=== PATIENT | male | born 1955 | race Caucasian/White ===

== ENCOUNTER 2017-03-01 17:50 | Inpatient (IN) | payer MEDICARE ==
[~2017-03-01] VITALS: Ht 188 cm; Wt 85.0 kg
[2017-03-01] MEDS ORDERED: IOHEXOL 350 MG/ML 10 ML VIAL (for RAD DIAG) IVCONTRAST ONE (17:51)
[2017-03-01 17:54] VITALS: BP 131/91; PULSE 84; RESP 14; TEMP 98; O2SAT 96
[2017-03-01] MEDS ORDERED: SODIUM CHLOR 0.9% 1000 ML INJ 1,000 ML IV ONE (18:19)
[2017-03-01] MEDS ORDERED: TAMS5CAP PO (18:22)
[2017-03-01] MEDS ORDERED: NEXI20CA PO (18:22)
[2017-03-01 18:26] VITALS: RESP 17; O2SAT 98
--- NOTE | 2017-03-01 18:28 | PD ---
HPI Chief Complaint: GI Complaint Time Seen by Provider: 18:07 Travel History International Travel<30 days: No Contact w/Intl Traveler<30days: No Traveled to known affect area: No History of Present Illness HPI 61-year-old male presents to the emergency department for evaluation of hematemesis, abdominal pain, headache, syncope 2. Patient states he came from [place] 2 weeks ago. He reports having abdominal pain since then, but worsened yesterday morning. Patient states he has vomited up blood twice. He states that there is approximately 2 shots glass full of blood in his vomit. He reports mild headache and mild blurry vision. He denies any chest pain or shortness of breath. Reports lower abdominal pain, nausea, vomiting, diarrhea. He denies any blood in his stool. Patient states that while at the beach today, he had 2 syncopal episodes while sitting down. Patient reports history of cardiac stent, cholecystectomy, back surgery 2, reflux. Patient states abdominal pain is in the lower abdomen. He is asking for pain medication. No radiation of the pain. Severity is moderate. No alleviating or exacerbating factors. PFSH Past Medical History Cardiovascular Problems: Yes High Cholesterol: Yes Hypertension: Yes Past Surgical History Cholecystectomy: Yes Coronary Stent: Yes Other Surgery: Yes (back surgery) Social History Alcohol Use: Yes Tobacco Use: Yes Substance Use: No Allergies-Medications (Allergen,Severity, Reaction): Coded Allergies: ketorolac (Verified Allergy, Severe, 03/01/17) butorphanol (Verified Adverse Reaction, Severe, 03/01/17) tramadol (Verified Adverse Reaction, Severe, 03/01/17) Reported Meds & Prescriptions Reported Meds & Active Scripts Active Reported Flomax (Tamsulosin HCl) 0.4 Mg Cap 0.4 Mg PO HS Nexium (Esomeprazole DR) 20 Mg Capdr 20 Mg PO DAILY Review of Systems Except as stated in HPI: all other systems reviewed are Neg Physical Exam Narrative GENERAL: Well-nourished, well-developed male patient, ambulatory. Afebrile SKIN: Focused skin assessment warm/dry. HEAD: Normocephalic. Atraumatic. ENT: Mucosa pink and moist. No erythema or exudates. No uvular edema. No uvular , palatal, or tonsillar deviation. Airway patent. Nasal turbinates appear normal without nasal blood, purulent drainage or septal hematoma. Bilateral tympanic membranes are clear without erythema or perforation. EYES: No scleral icterus. No injection or drainage. PERRLA. EOM intact. NECK: Supple, trachea midline. No JVD or lymphadenopathy. CARDIOVASCULAR: Regular rate and rhythm without murmurs, gallops, or rubs. Bilateral radial and pedal pulses are 2+. RESPIRATORY: Breath sounds equal bilaterally. No accessory muscle use. Lungs sounds are clear to auscultation. GASTROINTESTINAL: Abdomen soft and nondistended. Patient has tenderness to palpation of bilateral lower abdomen. MUSCULOSKELETAL: No cyanosis, or edema. Bilateral upper and lower extremity strength 5/5. All extremities are neurovascularly intact. BACK: Nontender without obvious deformity. No CVA tenderness. NEUROLOGICAL: Awake and alert. Cranial nerves II through XII intact. Motor and sensory grossly within normal limits. Five out of 5 muscle strength in all muscle groups. Normal speech. Finger to nose is normal bilaterally. Heel-to- baig is normal bilaterally. Data Data Last Documented VS Vital Signs Date Time Temp Pulse Resp B/P (MAP) Pulse Ox O2 Delivery O2 Flow Rate FiO2 03/01/17 21:10 82 20 136/89 (105) 100 Room Air 03/01/17 17:54 98.0 Orders Orders Electrocardiogram (03/01/17 18:19) Complete Blood Count With Diff (03/01/17 18:19) Comprehensive Metabolic Panel (03/01/17 18:19) Magnesium (Mg) (03/01/17 18:19) Ckmb (Isoenzyme) Profile (03/01/17 18:19) Troponin I (03/01/17 18:19) Act Partial Throm Time (Ptt) (03/01/17 18:19) Prothrombin Time / Inr (Pt) (03/01/17 18:19) Urinalysis - C+S If Indicated (03/01/17 18:19) Chest, Single Ap (03/01/17 18:19) Ct Brain W/O Iv Contrast(Rout) (03/01/17 18:19) Ecg Monitoring (03/01/17 18:19) Iv Access Insert/Monitor (03/01/17 18:19) Oximetry (03/01/17 18:19) Ondansetron Inj (Zofran Inj) (03/01/17 18:30) Sodium Chloride 0.9% Flush (Ns Flush) (03/01/17 18:30) Sodium Chlor 0.9% 1000 Ml Inj (Ns 1000 M (03/01/17 18:19) Lipase (03/01/17 18:19) Ct Abd/Pel W Iv Contrast(Rout) (03/01/17 ) Orthostatic Vital Signs (03/01/17 18:19) Morphine Inj (Morphine Inj) (03/01/17 18:30) Pantoprazole Inj (Protonix Inj) (03/01/17 19:00) CKMB (03/01/17 18:35) CKMB% (03/01/17 18:35) Morphine Inj (Morphine Inj) (03/01/17 20:15) Iohexol 350 Inj (Omnipaque 350 Inj) (03/01/17 17:51) Labs Laboratory Tests Test 03/01/17 18:35 03/01/17 21:05 White Blood Count 10.6 TH/MM3 Red Blood Count 5.09 MIL/MM3 Hemoglobin 16.3 GM/DL Hematocrit 47.2 % Mean Corpuscular Volume 92.9 FL Mean Corpuscular Hemoglobin 32.1 PG Mean Corpuscular Hemoglobin Concent 34.6 % Red Cell Distribution Width 13.5 % Platelet Count 315 TH/MM3 Mean Platelet Volume 7.7 FL Neutrophils (%) (Auto) 61.5 % Lymphocytes (%) (Auto) 22.9 % Monocytes (%) (Auto) 9.8 % Eosinophils (%) (Auto) 4.7 % Basophils (%) (Auto) 1.1 % Neutrophils # (Auto) 6.5 TH/MM3 Lymphocytes # (Auto) 2.4 TH/MM3 Monocytes # (Auto) 1.0 TH/MM3 Eosinophils # (Auto) 0.5 TH/MM3 Basophils # (Auto) 0.1 TH/MM3 CBC Comment DIFF FINAL Differential Comment Prothrombin Time 10.9 SEC Prothromb Time International Ratio 1.0 RATIO Activated Partial Thromboplast Time 26.1 SEC Blood Urea Nitrogen 8 MG/DL Creatinine 0.81 MG/DL Random Glucose 95 MG/DL Total Protein 7.6 GM/DL Albumin 4.0 GM/DL Calcium Level 9.0 MG/DL Magnesium Level 2.2 MG/DL Alkaline Phosphatase 117 U/L Aspartate Amino Transf (AST/SGOT) 22 U/L Alanine Aminotransferase (ALT/SGPT) 30 U/L Total Bilirubin 0.5 MG/DL Sodium Level 138 MEQ/L Potassium Level 3.8 MEQ/L Chloride Level 104 MEQ/L Carbon Dioxide Level 27.2 MEQ/L Anion Gap 7 MEQ/L Estimat Glomerular Filtration Rate 97 ML/MIN Total Creatine Kinase 200 U/L Creatine Kinase MB 3.6 NG/ML Troponin I 0.02 NG/ML Lipase 168 U/L Urine Color LIGHT-YELLOW Urine Turbidity CLEAR Urine pH 6.0 Urine Specific [place] 1.009 Urine Protein NEG mg/dL Urine Glucose (UA) NEG mg/dL Urine Ketones NEG mg/dL Urine Occult Blood NEG Urine Nitrite NEG Urine Bilirubin NEG Urine Urobilinogen LESS THAN 2.0 MG/DL Urine Leukocyte Esterase NEG Urine WBC LESS THAN 1 /hpf Urine Mucus FEW /lpf Microscopic Urinalysis Comment CULT NOT INDICATED MDM Medical Decision Making Medical Screen Exam Complete: Yes Emergency Medical Condition: Yes Medical Record Reviewed: Yes Interpretation(s) Last Impressions Head CT 03/01/171818 Signed Impressions: Service Date/Time: Wednesday, March 01, 2017 19:54 - CONCLUSION: Normal examination. Valentino Kahn MD Chest X-Ray 03/01/171818 Signed Impressions: Service Date/Time: Wednesday, March 01, 2017 18:31 - CONCLUSION: Normal examination. Valentino Kahn MD Abdomen/Pelvis CT 03/01/17 0000 Signed Impressions: Service Date/Time: Wednesday, March 01, 2017 19:58 - CONCLUSION: 1. Colonic diverticula without inflammatory change. 2. Suspected prostatic hypertrophy causing impress on the bladder floor. The bladder wall is diffusely thickened as may reflect lack of full distention and some degree of outlet obstruction could also contribute to this. 3. Degenerative and postoperative change in the lumbar spine. Valentino Kahn MD Differential Diagnosis Gastric ulcer versus diverticulitis versus gastroenteritis versus elected abnormality versus anemia versus intracranial abnormality versus ACS Narrative Course 61-year-old male presents to the emergency department for any hematemesis, abdominal pain, headache, blurry vision, syncope 2. EKG, CBC, CMP, Lipase, CK , Troponin, Magnesium, PTT, PT/INR, UA, Chest x-ray, CT of the brain, orthostatic VS, CT of the abdomen/pelvis with IV contrast is ordered and pending. Patient is requesting pain medication. Patient is given NS 1 L IV bolus, Zofran 4 mg IV, Morphine 4 mg IV. EKG shows SR, HR 75. CBC shows no acute abnormality. CMP is unremarkable. Magnesium is 2.2. Lipase is 168. CK is 200. Troponin is 0.02. Coags show no acute abnormality. UA is negative. Chest x-ray is normal. CT of the brain is normal. CT of the abdomen/pelvis with IV contrast shows colonic diverticula without inflammatory change; suspected prostatic hypertrophy causing impress on the bladder floor. The bladder wall is diffusely thickened as may reflect lack of full distention and some degree of outlet obstruction could also contribute to this; degenerative and postoperative change in the lumbar spine. Patient was given a second dose of morphine 4 mg IV for pain. He states his pain is still returning despite the pain medication. Patient also states that 3 months ago, he was told he needed an endoscopy, but declined at that time because he was scared. Patient will be admitted to the hospital for syncope, hematemesis. [facility] is paged for admission. Dr. Hogan accepted admission. Diagnosis Primary Impression: Syncope Qualified Codes: R55 - Syncope and collapse Additional Impression: Hematemesis Qualified Codes: K92.0 - Hematemesis Admitting Information Admitting Physician Requests: Chelsy Burns Mar 01, 2017 18:28
[2017-03-01] MEDS ORDERED: SODIUM CHLORIDE 0.9% FLUSH 10 ML FLUSH IVF PRN (18:30)
[2017-03-01] MEDS ORDERED: ONDANSETRON HCL 4 MG/2 ML VIAL IVP ONE (18:30)
[2017-03-01] MEDS ORDERED: MORPHINE SULFATE 4 MG/ML INJ IV PUSH ONE ×2 (18:30→20:15)
[2017-03-01 18:32] VITALS: BP_SYST 161; BP_SYST 165; BP_SYST 173; BP_DIAS 100; BP_DIAS 98; BP_DIAS 99; RESP 17
[2017-03-01 18:44] LABS: AUTOMATED NEUTROPHIL # 6.5 TH/MM3 (1.8-7.7); BASOPHIL # 0.1 TH/MM3 (0-0.2); BASOPHIL % 1.1 % (0.0-2.0); EOSINOPHIL # 0.5 TH/MM3 (0-0.4); EOSINOPHIL % 4.7 % (0.0-4.0); HEMATOCRIT 47.2 % (39.0-51.0); HEMO FLAGS DIFF FINAL; LYMPH % 22.9 % (9.0-44.0); LYMPHOCYTE # 2.4 TH/MM3 (1.0-4.8); MEAN CELL VOLUME 92.9 FL (80.0-100.0); MEAN CORPUSCULAR HEMOGLOBIN 32.1 PG (27.0-34.0); MEAN CORPUSCULAR HGB CONC 34.6 % (32.0-36.0); MONO % 9.8 % (0.0-8.0); NEUT % 61.5 % (16.0-70.0); PLATELET COUNT 315 TH/MM3 (150-450); RED BLOOD COUNT 5.09 MIL/MM3 (4.50-5.90); RED CELL DISTRIBUTION WIDTH 13.5 % (11.6-17.2); WHITE BLOOD COUNT 10.6 TH/MM3 (4.0-11.0)
[2017-03-01 18:56] LABS: APTT (PATIENT) 26.1 SEC (24.3-30.1); PROTHROMBIN TIME - PATIENT 10.9 SEC (9.8-11.6)
[2017-03-01] MEDS ORDERED: PANTOPRAZOLE SODIUM 40 MG VIAL IV PUSH ONE (19:00)
[2017-03-01 19:02] LABS: ANION GAP 7 MEQ/L (5-15); AST (GOT) 22 U/L (15-37); BICARBONATE 27.2 MEQ/L (21.0-32.0); BLOOD UREA NITROGEN 8 MG/DL (7-18); CHLORIDE 104 MEQ/L (98-107); GLOMERULAR FILTRATION RATE 97 ML/MIN (>89); MAGNESIUM 2.2 MG/DL (1.5-2.5); POTASSIUM 3.8 MEQ/L (3.5-5.1); SODIUM (NA) 138 MEQ/L (136-145)
[2017-03-01 19:03] LABS: ALT (GPT) 30 U/L (12-78)
[2017-03-01 19:07] LABS: ALKALINE PHOSPHATASE 117 U/L (45-117); CREATINE KINASE 200 U/L (39-308); TOTAL BILIRUBIN ADULT 0.5 MG/DL (0.2-1.0)
[2017-03-01 19:19] LABS: CKMB 3.6 NG/ML (0.5-3.6)
--- NOTE | 2017-03-01 19:26 | RADRPT ---
EXAM DATE/TIME: 03/01/2017 18:31 [facility] COMPARISON: No previous studies available for comparison. INDICATIONS : Syncopal episode. MEDICAL HISTORY : Chronic obstructive pulmonary disease. SURGICAL HISTORY : None. ENCOUNTER: Initial ACUITY: 1 day PAIN SCORE: 0/10 LOCATION: Bilateral chest FINDINGS: A single view of the chest demonstrates the lungs to be symmetrically aerated without evidence of mas s, infiltrate or effusion. The cardiomediastinal contours are unremarkable. Osseous structures are intact. CONCLUSION: Normal examination. Valentino Kahn MD on March 01, 2017 at 19:24 Board Certified Radiologist. This report was verified electronically.
[2017-03-01 21:10] VITALS: BP 136/89; PULSE 82; RESP 20; O2SAT 100
--- NOTE | 2017-03-01 21:10 | RADRPT ---
EXAM DATE/TIME: 03/01/2017 19:54 [facility] COMPARISON: No previous studies available for comparison. INDICATIONS : Syncope nausea vomiting for two days RADIATION DOSE: 56.35 CTDIvol (mGy) MEDICAL HISTORY : Cardiovascular disease. Hypertension. SURGICAL HISTORY : Cholecystectomy. ENCOUNTER: Initial ACUITY: 2 days PAIN SCALE: 8/10 LOCATION: cranial TECHNIQUE: Multiple contiguous axial images were obtained of the head. Using automated exposure control and adj ustment of the mA and/or kV according to patient size, radiation dose was kept as low as reasonably a chievable to obtain optimal diagnostic quality images. DICOM format image data is available electro nically for review and comparison. FINDINGS: CEREBRUM: The ventricles are normal for age. No evidence of midline shift, mass lesion, hemorrhage or acute in farction. No extra-axial fluid collections are seen. POSTERIOR FOSSA: The cerebellum and brainstem are intact. The 4th ventricle is midline. The cerebellopontine angle i s unremarkable. EXTRACRANIAL: The visualized portion of the orbits is intact. SKULL: The calvaria is intact. No evidence of skull fracture. CONCLUSION: Normal examination. Valentino Kahn MD on March 01, 2017 at 21:07 Board Certified Radiologist. This report was verified electronically.
--- NOTE | 2017-03-01 21:15 | RADRPT ---
EXAM DATE/TIME: 03/01/2017 19:58 [facility] COMPARISON: No previous studies available for comparison. INDICATIONS : Abdomen pain vomiting blood for two days. IV CONTRAST: 96 cc Omnipaque 350 (iohexol) IV ORAL CONTRAST: No oral contrast ingested. RADIATION DOSE: 6.84 CTDIvol (mGy) MEDICAL HISTORY : Cardiovascular disease. Hypertension. SURGICAL HISTORY : Cholecystectomy. ENCOUNTER: Initial ACUITY: 1 day PAIN SCALE: 8/10 LOCATION: Abdomen TECHNIQUE: Volumetric scanning of the abdomen and pelvis was performed. Using automated exposure control and ad justment of the mA and/or kV according to patient size, radiation dose was kept as low as reasonably achievable to obtain optimal diagnostic quality images. DICOM format image data is available electro nically for review and comparison. FINDINGS: LOWER LUNGS: The visualized lower lungs are clear. LIVER: Homogeneous density without lesion. There is no dilation of the biliary tree. Clips are seen in the right upper quadrant from prior cholecystectomy. SPLEEN: Normal size without lesion. PANCREAS: Within normal limits. KIDNEYS: Normal in size and shape. There is no mass, stone or hydronephrosis. ADRENAL GLANDS: Within normal limits. VASCULAR: There is no aortic aneurysm. There are scattered atherosclerotic calcifications seen throughout the a rterial system. BOWEL/MESENTERY: There are colonic diverticula in the sigmoid region. The appendix is normal. ABDOMINAL WALL: Within normal limits. RETROPERITONEUM: There is no lymphadenopathy. BLADDER: The bladder wall is mildly thickened. The bladder is only mildly distended. There is a focal masslike area seen at the bladder floor likely related to an impression from prostatic hypertrophy. REPRODUCTIVE: There appears to be hypertrophy of the superior aspect of the prostate projecting into the bladder fl oor. INGUINAL: There is no lymphadenopathy or hernia. MUSCULOSKELETAL: There is degenerative change in the lumbar spine. There is evidence of prior surgical hardware in the lumbar spine is been removed. Tracks for transpedicular screws are seen. CONCLUSION: 1. Colonic diverticula without inflammatory change. 2. Suspected prostatic hypertrophy causing impress on the bladder floor. The bladder wall is diffusel y thickened as may reflect lack of full distention and some degree of outlet obstruction could also c ontribute to this. 3. Degenerative and postoperative change in the lumbar spine. Valentino Kahn MD on March 01, 2017 at 21:08 Board Certified Radiologist. This report was verified electronically.
[2017-03-01 21:25] LABS: BLOOD, URINE NEG (NEG); COMMENT (UR) CULT NOT INDICATED; CULTURE IF INDICATED CULT NOT INDICATED; GLUCOSE,URINE NEG (NEG); KETONE, URINE NEG (NEG); MUCUS URINE FEW /lpf (OCC); NITRITE,URINE NEG (NEG); URINE COLOR LIGHT-YELLOW (YELLW/STRAW)
[2017-03-01] MEDS ORDERED: SODIUM CHLOR 0.9% 1000 ML INJ 1,000 ML IV SCH (21:49)
[2017-03-01] MEDS ORDERED: SODIUM CHLORIDE 0.9% FLUSH 10 ML FLUSH IV FLUSH PRN (22:00)
[2017-03-01 23:00] VITALS: BP 142/72
[2017-03-01 23:50] VITALS: BP 143/71; PULSE 85; RESP 19; TEMP 97.4; O2SAT 94
[2017-03-02] VITALS (11 sets, daily range): BP systolic 120–142; BP diastolic 76–92; PULSE 70–88; RESP 16–20; TEMP 96.4–97.9; O2SAT 95–96
[2017-03-02] MEDS ORDERED: MORPHINE SULFATE 2 MG/ML INJ IV ONE (02:00)
--- NOTE | 2017-03-02 02:01 | HHI.HP ---
[facility] No Primary Care Physician Admission Diagnosis syncope, hematemesis Diagnoses: Travel History International Travel<30 Days: No Contact w/Intl Traveler <30 Da: No Traveled to Known Affected Are: No History of Present Illness 61-year-old male with a past medical history significant for coronary artery disease status post stent placement approximately 10 years ago, hypertension, BPH and GERD presents with multiple syncopal episodes and hematemesis. The patient reports he was on the beach with his son when he passed out 2. He states he became lightheaded and then lost consciousness briefly. He reports this has happened before although cannot give me specifics of any other events. The patient also endorses hematemesis. He states he had 2 episodes with a half a cup of blood in his vomit today. He states this has happened to him before when he was living in [place] and he was scheduled for an EGD but did not go through with it because "he chickened out." The patient is not anemic. Endorses abdominal pain worse in the lower quadrants. Denies diarrhea. Denies fever/chills. The patient moved here from [place] 15 days ago, is currently living in various motels. Review of Systems Denies fever or chills Denies blurry vision, otorrhea, rhinorrhea Denies sore throat and cough No chest pain, palpitations, shortness of breath No abdominal pain Denies constipation/diarrhea/nausea/vomiting Denies muscle pain/weakness No rashes Past Family Social History Past Medical History Coronary artery disease with stenting 10 years ago. Of note the patient reports he is supposed to take aspirin and Plavix but does not. Hypertension BPH GERD Past Surgical History Stent approximately 10 years ago Back surgery 2 complicated by MRSA infection Index finger reattachment Cholecystectomy Reported Medications Reported Meds & Active Scripts Active Reported Flomax (Tamsulosin HCl) 0.4 Mg Cap 0.4 Mg PO HS Nexium (Esomeprazole DR) 20 Mg Capdr 20 Mg PO DAILY Allergies: Coded Allergies: ketorolac (Verified Allergy, Severe, 03/01/17) butorphanol (Verified Adverse Reaction, Severe, 03/01/17) tramadol (Verified Adverse Reaction, Severe, 03/01/17) Family History Father with prostate cancer and diabetes. Mother with diabetes. Social History Smokes half a pack per day 30 years. Occasional alcohol use. Denies marijuana or illicit drugs. Physical Exam Vital Signs Vital Signs Date Time Temp Pulse Resp B/P (MAP) Pulse Ox O2 Delivery O2 Flow Rate FiO2 03/01/17 23:50 97.4 85 19 143/71 (95) 94 03/01/17 23:00 86 20 142/72 (95) 98 03/01/17 21:10 82 20 136/89 (105) 100 Room Air 03/01/17 18:37 17 03/01/17 18:32 89 17 161/99 (119) 94 17 173/100 (124) 99 17 165/98 (120) 03/01/17 18:29 17 03/01/17 18:26 17 98 Room Air 03/01/17 17:54 98.0 84 14 131/91 (104) 96 Room Air Physical Exam GENERAL: Disheveled, male sitting up SKIN: No rashes, ecchymoses or lesions. Cool and dry. HEAD: Atraumatic. Normocephalic. No temporal or scalp tenderness. EYES: Pupils equal round and reactive. Extraocular motions intact. No scleral icterus. No injection or drainage. ENT: Nose without bleeding, purulent drainage or septal hematoma. Throat without erythema, tonsillar hypertrophy or exudate. Uvula midline. Airway patent. NECK: Trachea midline. No JVD or lymphadenopathy. Supple, nontender, no meningeal signs. CARDIOVASCULAR: Regular rate and rhythm without murmurs, gallops, or rubs. RESPIRATORY: Clear to auscultation. Breath sounds equal bilaterally. No wheezes , rales, or rhonchi. GASTROINTESTINAL: Abdomen soft, nondistended. Tender to palpation in the lower quadrants, right greater than left. No hepato-splenomegaly, or palpable masses. No guarding. MUSCULOSKELETAL: Extremities without clubbing, cyanosis, or edema. No joint tenderness, effusion, or edema noted. No calf tenderness. Negative Homans sign bilaterally. NEUROLOGICAL: Awake and alert. Cranial nerves II through XII intact. Motor and sensory grossly within normal limits. Normal speech. Laboratory Laboratory Tests Test 03/01/17 18:35 03/01/17 21:05 White Blood Count 10.6 Red Blood Count 5.09 Hemoglobin 16.3 Hematocrit 47.2 Mean Corpuscular Volume 92.9 Mean Corpuscular Hemoglobin 32.1 Mean Corpuscular Hemoglobin Concent 34.6 Red Cell Distribution Width 13.5 Platelet Count 315 Mean Platelet Volume 7.7 Neutrophils (%) (Auto) 61.5 Lymphocytes (%) (Auto) 22.9 Monocytes (%) (Auto) 9.8 Eosinophils (%) (Auto) 4.7 Basophils (%) (Auto) 1.1 Neutrophils # (Auto) 6.5 Lymphocytes # (Auto) 2.4 Monocytes # (Auto) 1.0 Eosinophils # (Auto) 0.5 Basophils # (Auto) 0.1 CBC Comment DIFF FINAL Differential Comment Prothrombin Time 10.9 Prothromb Time International Ratio 1.0 Activated Partial Thromboplast Time 26.1 Blood Urea Nitrogen 8 Creatinine 0.81 Random Glucose 95 Total Protein 7.6 Albumin 4.0 Calcium Level 9.0 Magnesium Level 2.2 Alkaline Phosphatase 117 Aspartate Amino Transf (AST/SGOT) 22 Alanine Aminotransferase (ALT/SGPT) 30 Total Bilirubin 0.5 Sodium Level 138 Potassium Level 3.8 Chloride Level 104 Carbon Dioxide Level 27.2 Anion Gap 7 Estimat Glomerular Filtration Rate 97 Total Creatine Kinase 200 Creatine Kinase MB 3.6 Troponin I 0.02 Lipase 168 Ethyl Alcohol Level 4 Urine Color LIGHT-YELLOW Urine Turbidity CLEAR Urine pH 6.0 Urine Specific [place] 1.009 Urine Protein NEG Urine Glucose (UA) NEG Urine Ketones NEG Urine Occult Blood NEG Urine Nitrite NEG Urine Bilirubin NEG Urine Urobilinogen LESS THAN 2.0 Urine Leukocyte Esterase NEG Urine WBC LESS THAN 1 Urine Mucus FEW Microscopic Urinalysis Comment CULT NOT INDICATED Result Diagram: 03/01/17183403/01/171834 Caprini VTE Risk Assessment Caprini VTE Risk Assessment: Mod/High Risk (score >= 2) VTE Pharm Contraindication: Active bleeding Caprini Risk Assessment Model Point Value = 1 Point Value = 2 Point Value = 3 Point Value = 5 Age 41-60 Minor surgery BMI > 25 kg/m2 Swollen legs Varicose veins or History of unexplained or recurrent spontaneous Oral contraceptives or hormone replacement Sepsis (< 1 month) Serious lung disease, including pneumonia (< 1 month) Abnormal pulmonary function Acute myocardial infarction Congestive heart failure (< 1 month) History of inflammatory bowel disease Medical patient at bed rest Age 61-74 Arthroscopic surgery Major open surgery (> 45 min) Laparoscopic surgery (> 45 min) Malignancy Confined to bed (> 72 hours) Immobilizing plaster cast Central venous access Age >= 75 History of VTE Family history of VTE Factor V Leiden Prothrombin [id number] Lupus anticoagulant Anticardiolipin antibodies Elevated serum homocysteine Heparin-induced thrombocytopenia Other congenital or acquired thrombophilia Stroke (< 1 month) Elective arthroplasty Hip, pelvis, or leg fracture Acute spinal cord injury (< 1 month) Prophylaxis Regimen Total Risk Factor Score Risk Level Prophylaxis Regimen 0-1 Low Early ambulation 2 Moderate Order ONE of the following: *Sequential Compression Device (SCD) *Heparin 5000 units SQ BID 3-4 Higher Order ONE of the following medications: *Heparin 5000 units SQ TID *Enoxaparin/Lovenox 40 mg SQ daily (WT < 150 kg, CrCl > 30 mL/min) *Enoxaparin/Lovenox 30 mg SQ daily (WT < 150 kg, CrCl > 10-29 mL/min) *Enoxaparin/Lovenox 30 mg SQ BID (WT < 150 kg, CrCl > 30 mL/min) AND/OR *Sequential Compression Device (SCD) 5 or more Highest Order ONE of the following medications: *Heparin 5000 units SQ TID (Preferred with Epidurals) *Enoxaparin/Lovenox 40 mg SQ daily (WT < 150 kg, CrCl > 30 mL/min) *Enoxaparin/Lovenox 30 mg SQ daily (WT < 150 kg, CrCl > 10-29 mL/min) *Enoxaparin/Lovenox 30 mg SQ BID (WT < 150 kg, CrCl > 30 mL/min) AND *Sequential Compression Device (SCD) Assessment and Plan Assessment and Plan 61-year-old male with past medical history significant for coronary artery disease, hypertension, BPH and GERD presents with multiple episodes of hematemesis and syncope. 1. Hematemesis Protonix IV Nothing by mouth Gastroenterology consulted, appreciate recommendations Monitor H&H 2. Reported syncopal events EKG significant only for LVH Syncopal workup pending including ECHO and carotid ultrasound Alcohol level 4, toxicology pending 3. Hypertension Patient not currently taking any antihypertensives Monitor BP and treat when necessary 4. Coronary artery disease Patient status post stenting, states he is supposed to take aspirin and Plavix but does not Patient needs to establish with a director behavioral health as an outpatient 5. GERD IV Protonix 6. BPH Continue Flomax FEN NPO NS at 100 cc/hr Electrolytes: monitor and replete prn Holding pharmacologic anticoagulation for hematemesis Elen Hogan MD Mar 02, 2017 02:01
[2017-03-02 07:01] LABS: AUTOMATED NEUTROPHIL # 4.7 TH/MM3 (1.8-7.7); BASOPHIL # 0.1 TH/MM3 (0-0.2); BASOPHIL % 1.2 % (0.0-2.0); EOSINOPHIL # 0.5 TH/MM3 (0-0.4); EOSINOPHIL % 6.7 % (0.0-4.0); HEMATOCRIT 44.3 % (39.0-51.0); HEMO FLAGS DIFF FINAL; LYMPH % 23.5 % (9.0-44.0); LYMPHOCYTE # 1.9 TH/MM3 (1.0-4.8); MEAN CELL VOLUME 92.1 FL (80.0-100.0); MEAN CORPUSCULAR HEMOGLOBIN 32.5 PG (27.0-34.0); MEAN CORPUSCULAR HGB CONC 35.2 % (32.0-36.0); MONO % 9.7 % (0.0-8.0); NEUT % 58.9 % (16.0-70.0); PLATELET COUNT 280 TH/MM3 (150-450); RED BLOOD COUNT 4.81 MIL/MM3 (4.50-5.90); RED CELL DISTRIBUTION WIDTH 13.4 % (11.6-17.2); WHITE BLOOD COUNT 7.9 TH/MM3 (4.0-11.0)
[2017-03-02 07:32] LABS: BICARBONATE 27.7 MEQ/L (21.0-32.0)
--- NOTE | 2017-03-02 07:35 | PD.CONS ---
HPI History of Present Illness This is a 61 year old male who was brought to the emergency room for evaluation after a syncopal episode and hematemesis. [place] the [place] and fainted x 2. He reports that he wasn't dizzy or lightheaded, but states it just came out of nowhere. Prior to his syncopal episode, he vomited a small amount of red blood. He has been having abdominal pain for the past 6- 12 months. He describes this as a sharp/burning pain in his lower abdomen with radiation to his back. He has had associated nausea and vomiting with this, sometimes with red blood. He has GERD, but states that it is controlled with Nexium. He had loose stool yesterday, that was darker than usual. He denies any decreased appetite or weight loss. He believes he has had stomach ulcers in the past, although he is unsure. He was seen in [place] for hematemesis and was scheduled for an EGD about 8 months ago, but "chickened out" and never had it done. He reports that he did have an EGD and Colonoscopy many years ago. He does not take any Advil or Motrin. He does have a history of coronary artery disease and has had a stent placed. He was initially placed on Plavix, but states that he was taken off of this shortly after he had his stent placed. He drinks ETOH 6-8 beers per week. (Anabel Saenz) PFSH Past Medical History Coronary artery disease Hematemesis Hypertension BPH GERD Chronic back pain Past Surgical History Cardiac catheterization with stent placement about 10 years ago Back surgery with revision for MRSA infection Index finger reattachment Cholecystectomy EGD/Colonoscopy (Anabel Saenz) Coded Allergies: ketorolac (Verified Allergy, Severe, 03/01/17) butorphanol (Verified Adverse Reaction, Severe, 03/01/17) tramadol (Verified Adverse Reaction, Severe, 03/01/17) Medications Allergies Coded Allergies Type Severity Reaction Last Updated Verified ketorolac Allergy Severe 03/01/17 Yes butorphanol Adverse Reaction Severe 03/01/17 Yes tramadol Adverse Reaction Severe 03/01/17 Yes Active Scripts Medications Dose Route/Sig Max Daily Dose Days Date Category Flomax (Tamsulosin HCl) 0.4 Mg Cap 0.4 Mg PO HS 03/01/17 Reported Nexium (Esomeprazole DR) 20 Mg Capdr 20 Mg PO DAILY 03/01/17 Reported Family History Father with prostate cancer and diabetes. Mother with diabetes. Social History Smokes half a pack per day 30 years. Drinks 6-8 beers per week. Denies marijuana or illicit drugs. (Anabel Saenz) Review of Systems Constitutional: COMPLAINS OF: Chills, DENIES: Fatigue, Fever, Weight loss, Change in appetite Respiratory: COMPLAINS OF: Cough Cardiovascular: COMPLAINS OF: Syncope, DENIES: Chest pain Gastrointestinal: COMPLAINS OF: Abdominal pain, Black stools, Diarrhea, Nausea , Vomiting, Heartburn, Hematemesis, DENIES: Bloody stools, Constipation Musculoskeletal: COMPLAINS OF: Back pain Hematologic/lymphatic: DENIES: Bruising Neurologic: DENIES: Headache Psychiatric: DENIES: Confusion (Anabel Saenz) GI Exam Vitals I&O Vital Signs Date Time Temp Pulse Resp B/P (MAP) Pulse Ox O2 Delivery O2 Flow Rate FiO2 03/02/17 06:38 86 137/89 (105) 03/02/17 06:36 88 139/92 (108) 03/02/17 06:34 75 135/81 (99) 03/02/17 04:10 70 03/02/17 04:04 96.4 73 16 120/76 (91) 95 03/02/17 01:47 79 03/02/17 01:47 79 03/01/17 23:50 97.4 85 19 143/71 (95) 94 03/01/17 23:00 86 20 142/72 (95) 98 03/01/17 21:10 82 20 136/89 (105) 100 Room Air 03/01/17 18:37 17 03/01/17 18:32 89 17 161/99 (119) 94 17 173/100 (124) 99 17 165/98 (120) 03/01/17 18:29 17 03/01/17 18:26 17 98 Room Air 03/01/17 17:54 98.0 84 14 131/91 (104) 96 Room Air I/O 03/01/17 03/01/17 03/01/17 03/02/17 03/02/17 03/02/17 07:00 15:00 23:00 07:00 15:00 23:00 Intake Total 1000 ml Balance 1000 ml Intake IV Total 1000 ml Imaging Last Impressions Head CT 03/01/179 Signed Impressions: Service Date/Time: Wednesday, March 01, 2017 19:54 - CONCLUSION: Normal examination. Valentino Kahn MD Chest X-Ray 03/01/171818 Signed Impressions: Service Date/Time: Wednesday, March 01, 2017 18:31 - CONCLUSION: Normal examination. Valentino Kahn MD Abdomen/Pelvis CT 03/01/17 0000 Signed Impressions: Service Date/Time: Wednesday, March 01, 2017 19:58 - CONCLUSION: 1. Colonic diverticula without inflammatory change. 2. Suspected prostatic hypertrophy causing impress on the bladder floor. The bladder wall is diffusely thickened as may reflect lack of full distention and some degree of outlet obstruction could also contribute to this. 3. Degenerative and postoperative change in the lumbar spine. Valentino Kahn MD Laboratory Test 03/01/17 18:35 03/01/17 21:05 03/02/17 06:25 White Blood Count 10.6 TH/MM3 7.9 TH/MM3 Red Blood Count 5.09 MIL/MM3 4.81 MIL/MM3 Hemoglobin 16.3 GM/DL 15.6 GM/DL Hematocrit 47.2 % 44.3 % Mean Corpuscular Volume 92.9 FL 92.1 FL Mean Corpuscular Hemoglobin 32.1 PG 32.5 PG Mean Corpuscular Hemoglobin Concent 34.6 % 35.2 % Red Cell Distribution Width 13.5 % 13.4 % Platelet Count 315 TH/MM3 280 TH/MM3 Mean Platelet Volume 7.7 FL 7.7 FL Neutrophils (%) (Auto) 61.5 % 58.9 % Lymphocytes (%) (Auto) 22.9 % 23.5 % Monocytes (%) (Auto) 9.8 % 9.7 % Eosinophils (%) (Auto) 4.7 % 6.7 % Basophils (%) (Auto) 1.1 % 1.2 % Neutrophils # (Auto) 6.5 TH/MM3 4.7 TH/MM3 Lymphocytes # (Auto) 2.4 TH/MM3 1.9 TH/MM3 Monocytes # (Auto) 1.0 TH/MM3 0.8 TH/MM3 Eosinophils # (Auto) 0.5 TH/MM3 0.5 TH/MM3 Basophils # (Auto) 0.1 TH/MM3 0.1 TH/MM3 CBC Comment DIFF FINAL DIFF FINAL Differential Comment Prothrombin Time 10.9 SEC Prothromb Time International Ratio 1.0 RATIO Activated Partial Thromboplast Time 26.1 SEC Blood Urea Nitrogen 8 MG/DL Creatinine 0.81 MG/DL Random Glucose 95 MG/DL Total Protein 7.6 GM/DL Albumin 4.0 GM/DL Calcium Level 9.0 MG/DL Magnesium Level 2.2 MG/DL Alkaline Phosphatase 117 U/L Aspartate Amino Transf (AST/SGOT) 22 U/L Alanine Aminotransferase (ALT/SGPT) 30 U/L Total Bilirubin 0.5 MG/DL Sodium Level 138 MEQ/L Potassium Level 3.8 MEQ/L Chloride Level 104 MEQ/L Carbon Dioxide Level 27.2 MEQ/L Anion Gap 7 MEQ/L Estimat Glomerular Filtration Rate 97 ML/MIN Total Creatine Kinase 200 U/L Creatine Kinase MB 3.6 NG/ML Troponin I 0.02 NG/ML Lipase 168 U/L Ethyl Alcohol Level 4 MG/DL Urine Color LIGHT-YELLOW Urine Turbidity CLEAR Urine pH 6.0 Urine Specific [place] 1.009 Urine Protein NEG mg/dL Urine Glucose (UA) NEG mg/dL Urine Ketones NEG mg/dL Urine Occult Blood NEG Urine Nitrite NEG Urine Bilirubin NEG Urine Urobilinogen LESS THAN 2.0 MG/DL Urine Leukocyte Esterase NEG Urine WBC LESS THAN 1 /hpf Urine Mucus FEW /lpf Microscopic Urinalysis Comment CULT NOT INDICATED Urine Opiates Screen POS Urine Barbiturates Screen NEG Urine Amphetamines Screen NEG Urine Benzodiazepines Screen NEG Urine Cocaine Screen NEG Urine Cannabinoids Screen POS Physical Examination HEENT: Normocephalic; atraumatic; no jaundice. Throat is clear. NECK: Neck is supple, no JVD, no lymphadenopathy. CHEST: CTA CARDIAC: RRR ABDOMEN: Soft, nondistended, nontender; no hepatosplenomegaly; bowel sounds are present in all four quadrants. EXTREMITIES: No clubbing, cyanosis, or edema. SKIN: Normal; no rash; no jaundice. LAUNDRY TUB MAKER: No focal deficits; alert and oriented times three. (Anabel Saenz) Assessment and Plan Plan ASSESSMENT: - Hematemesis. Vomited small amount red blood x 2 yesterday. C/O intermittent lower abdominal pain past 6-12 months with rare episodes of hematemesis. He was scheduled for EGD 8 months ago, but did not follow through with it in [place]. (+) Dark stool. (+) ETOH- 6-8 beers per week. No on NSAIDs/Blood thinners. HH stable. Plan for egd today. PPI. NPO. - Abdominal pain. 6-12 month hx of lower abdominal sharp/burning pain. CT Scan abdomen and pelvis (03/01/17)---> Colonic diverticula without inflammatory change. Suspected prostatic hypertrophy causing impress on the bladder floor. The bladder wall is diffusely thickened as may reflex lack of full distention and some degree of outlet obstruction could also contribute to this. Degenerative and postoperative change in the lumbar spine. Labs unremarkable. PPI. EGD today. - Syncopal episode. Troponin I 0.02. - Abn. imaging of bladder per attending. - BPH, CAD, HTN, Chronic back pain. PLAN: - Plan for egd today - Obtain consents - NPO - Protonix 40mg IV BID - CBC, BMP in am - Supportive care - Futher recommendations to follow based on results of above - Pt seen and examined by Dr. Cramer and myself and this note is written on his behalf (Anabel Saenz) Physician Comments Patient seen and examined Agree with above Continue with current supportive care Monitor labs Plan for an EGD today (Dereje Cramer MD) Anabel Saenz Mar 02, 2017 07:35 Dereje Cramer MD Mar 02, 2017 13:09
[2017-03-02] MEDS: NS + KCL 20 MEQ INJ 1,000 ML IV SCH (08:43)
[2017-03-02] MEDS: PANTOPRAZOLE SODIUM 40 MG VIAL IV PUSH SCH ×2 (08:43→20:49)
[2017-03-02] MEDS: SODIUM CHLORIDE 0.9% FLUSH 10 ML FLUSH IV FLUSH SCH ×2 (08:43→20:48)
[2017-03-02] MEDS ORDERED: NON-FORMULARY DRUG (Esomeprazole DR (Nexium) 20 MG) PO SCH (09:00)
--- NOTE | 2017-03-02 09:53 | RADRPT ---
EXAM DATE/TIME: 03/02/2017 08:13 [facility] COMPARISON: No previous studies available for comparison. INDICATIONS : Syncope. MEDICAL HISTORY : Hypercholesterolemia. Hypertension. Syncope. Abdominal pain. Hematemesis. Substance use. Tobacco us e. SURGICAL HISTORY : Coronary artery stent. Cholecystectomy. Back surgery. ENCOUNTER: Initial ACUITY: 1 day PAIN SCORE: 0/10 LOCATION: Bilateral neck PEAK SYSTOLIC VELOCITIES (cm/sec): ICA/CCA RATIO: Right: 0.9 Left: 1.1 ICA: Right: 77 Left: 93 CCA: Right: 85 Left: 88 ECA: Right: 61 Left: 53 VERTEBRAL: Right: 48 antegrade Left: 40 antegrade Elevated flow velocities and ICA/CCA ratios have been found to correlate with increased degrees of vessel stenosis, calculated as percentage of diameter relative to a normal segment of distal ICA/CCA FINDINGS: RIGHT CAROTID: No significant stenosis is visualized. There is mild atherosclerotic plaquing. The waveforms are wit hin normal limits. LEFT CAROTID: No significant stenosis is visualized. There is mild atherosclerotic plaquing. The waveforms are wit hin normal limits. VERTEBRAL ARTERIES: Antegrade flow is seen in both vertebral arteries. MISCELLANEOUS: None. CONCLUSION: 1. Mild atherosclerotic plaquing. No hemodynamically significant carotid stenosis identified. Geoff Yu MD on March 02, 2017 at 9:49 Board Certified Radiologist. This report was verified electronically.
[2017-03-02] MEDS ORDERED: MORPHINE SULFATE 4 MG/ML INJ IV PUSH PRN (10:30)
[2017-03-02] MEDS: TAMSULOSIN HCL 0.4 MG CAP PO SCH (10:30)
[2017-03-02] MEDS ORDERED: ACETAMINOPHEN 325 MG TAB PO PRN (10:30)
--- NOTE | 2017-03-02 10:42 | HHI.PR ---
Subjective Remarks Follow up for syncope, hematemesis. The patient's main concern today is his ongoing abdominal pain. He locates the pain diffusely across the lower abdomen and suprapubic area, described as intermittent burning 8/10 pain. He states he' s had these pains off/on for 6-8 months. He states he doesn't have any pain medication. He is requesting pain medication to be ordered. His last BM was this morning, described as formed, nonbloody. He has not vomited since prior to arrival. He states he is aware of his enlarged prostate and that is why he takes flomax. He occasionally has urinary hesitancy but denies any dysuria. Denies any fevers/chills. He recently moved to the area from [place] and states he will have a place to live by the first of the month. Objective Vitals Vital Signs Date Time Temp Pulse Resp B/P (MAP) Pulse Ox O2 Delivery O2 Flow Rate FiO2 03/02/17 07:57 97.7 78 20 142/87 (105) 95 03/02/17 06:38 86 137/89 (105) 03/02/17 06:36 88 139/92 (108) 03/02/17 06:34 75 135/81 (99) 03/02/17 04:10 70 03/02/17 04:04 96.4 73 16 120/76 (91) 95 03/02/17 01:47 79 03/02/17 01:47 79 03/01/17 23:50 97.4 85 19 143/71 (95) 94 03/01/17 23:00 86 20 142/72 (95) 98 03/01/17 21:10 82 20 136/89 (105) 100 Room Air 03/01/17 18:37 17 03/01/17 18:32 89 17 161/99 (119) 94 17 173/100 (124) 99 17 165/98 (120) 03/01/17 18:29 17 03/01/17 18:26 17 98 Room Air 03/01/17 17:54 98.0 84 14 131/91 (104) 96 Room Air I/O 03/01/17 03/01/17 03/01/17 03/02/17 03/02/17 03/02/17 07:00 15:00 23:00 07:00 15:00 23:00 Intake Total 1000 ml 100 ml Balance 1000 ml 100 ml Intake IV Total 1000 ml 100 ml Result Diagram: 03/02/17 0625 03/02/1725 Imaging Last Impressions Carotid Artery Ultrasound 03/02/17 0000 Signed Impressions: Service Date/Time: February 08:13 - CONCLUSION: 1. Mild atherosclerotic plaquing. No hemodynamically significant carotid stenosis identified. Geoff Yu MD Head CT 03/01/171818 Signed Impressions: Service Date/Time: Wednesday, March 01, 2017 19:54 - CONCLUSION: Normal examination. Valentino Kahn MD Chest X-Ray 03/01/171818 Signed Impressions: Service Date/Time: Wednesday, March 01, 2017 18:31 - CONCLUSION: Normal examination. Valentino Kahn MD Abdomen/Pelvis CT 03/01/17 0000 Signed Impressions: Service Date/Time: Wednesday, March 01, 2017 19:58 - CONCLUSION: 1. Colonic diverticula without inflammatory change. 2. Suspected prostatic hypertrophy causing impress on the bladder floor. The bladder wall is diffusely thickened as may reflect lack of full distention and some degree of outlet obstruction could also contribute to this. 3. Degenerative and postoperative change in the lumbar spine. Valentino Kahn MD Objective Remarks GENERAL: Well-nourished, well-developed middle aged male patient in [facility]. SKIN: Warm and dry. No rash. HEENT: Normocephalic. Atraumatic. Pupils equal and round. Mucous membranes pink and moist. CARDIOVASCULAR: Regular rate and rhythm. S1, S2 noted. No murmur appreciated. RESPIRATORY: No accessory muscle use. Clear to auscultation. Breath sounds equal bilaterally. GASTROINTESTINAL: Abdomen soft, nondistended, diffuse b/l lower quadrant mild TTP. Normoactive bowel sounds x4. MUSCULOSKELETAL: No obvious deformities. Extremities without clubbing, cyanosis , or edema. NEUROLOGICAL: Awake and alert. No obvious cranial nerve deficits. Motor grossly within normal limits. Normal speech. PSYCHIATRIC: Appropriate mood and affect; insight and judgment normal. Medications and IVs Current Medications Medications (Trade) Dose Ordered Sig/Vaibhav Route Start Time Stop Time Status Last Admin (NS Flush) 2 ml UNSCH PRN IV FLUSH 03/01/17 22:00 (NS Flush) 2 ml BID IV FLUSH 03/02/17 09:00 Potassium Chloride/Sodium Chloride 1,000 ml @ 100 mls/hr Q10H IV 03/02/17 06:15 03/02/17 08:43 (Protonix Inj) 40 mg BID IV PUSH 03/02/17 09:00 03/02/17 08:43 (Flomax) 0.4 mg DAILY PO 03/02/17 10:30 UNV A/P Assessment and Plan 61-year-old male with past medical history significant for coronary artery disease, hypertension, BPH and GERD presents with multiple episodes of hematemesis and syncope. Hematemesis/Abdominal Pain: unclear etiology, Hgb stable at 16.3, 15.6. CT abd/ pelvis shows colonic diverticular without inflammation; suspect prostatic hypertrophy causing impress on the bladder floor; bladder wall diffusely thickened as may reflect lack of full distention and some degree of outlet obstruction -Continue Protonix IV -Keep NPO for now -Continue to monitor serial H&H -Supportive treatment with IVF, antiemetics prn, pain control with norco prn and IV morphine prn -Gastroenterology consulted, appreciate recommendations, plan for EGD Reported syncopal events: unclear etiology, suspect vasovagal and dehydration, patient reports abdominal pain prior to episode. UDS positive for opiates and cannabinoids. -EKG reviewed and significant only for LVH -Carotid U/S shows mild atherosclerotic plaquing; no significant stenosis -Check echocardiogram -Check orthostatics -Give IVF -Monitor on telemetry BPH: patient aware of enlarged prostate. Patient reports physicians in [place] were following this previously. CT abd as above with prostatic hypertrophy and diffusely thickened bladder wall -Continue patient's Flomax -Ordered bladder scan -Patient informed of CT results and instructed to follow up with PCP and urologist after discharge. Hypertension: Patient not currently taking any antihypertensives -Monitor BP and treat when necessary Coronary artery disease -Patient status post stenting, states he is supposed to take aspirin and Plavix but does not -Patient needs to establish with a hay farmer as an outpatient GERD: acute on chronic -Continue IV Protonix DVT Prophylaxis: teds/SCDs; avoid chemoprophylaxis with hematemesis and upcoming procedure Discharge Planning Not yet ready for discharge. Possibly d/c tomorrow. Elaine Kulkarni PA-C Mar 02, 2017 10:42 am
[2017-03-02] MEDS ORDERED: LACTATED RINGER'S 1000 ML INJ 1,000 ML ONE (11:37)
[2017-03-02] MEDS: NICOTINE 14 MG/24 HR PATCH T-DERMAL SCH (13:00)
[2017-03-02] MEDS: REMOVE OLD PATCH T-DERMAL SCH (13:00)
--- NOTE | 2017-03-02 13:12 | PD.PROCEDR ---
GI Procedure PROCEDURE PERFORMED EGD with biopsy INDICATION FOR PROCEDURE Hematemesis, abdominal pain PROCEDURE: The procedure, risks and benefits were discussed with Mr. Blunt and informed consent was obtained. Anesthesia sedated him with Diprivan. He was placed in the left lateral decubitus position. EGD: The Pentax videoscope was introduced through the oropharynx and advanced to the second portion of the duodenum under direct visualization. Retroflexion was performed in the stomach. FINDINGS: The esophagus this appeared to be unremarkable and within normal limits The stomach there was patchy and punctate erythema throughout the gastric body and antrum and antral biopsies were taken no ulcerations or erosions retroflexion was unremarkable The duodenum this was normal ESTIMATED BLOOD LOSS: None SPECIMENS REMOVED: Antral biopsies COMPLICATIONS: None IMPRESSION: Gastritis PLAN: Await biopsies Continue with current supportive care Monitor labs Dereje Cramer MD Mar 02, 2017 13:12
[2017-03-02] MEDS: MORPHINE SULFATE 4 MG/ML INJ IV PUSH PRN ×2 (13:40→16:22)
--- NOTE | 2017-03-02 16:05 | EKG ---
Date Performed: 03/01/2017 Time Performed: 18:30:59 PTAGE: 61 years EKG: Sinus rhythm POSSIBLE LEFT VENTRICULAR HYPERTROPHY ABNORMAL ECG NO PREVIOUS TRACING DOCTOR: Kelsea Sims Interpretating Date/Time 03/02/2017 16:03:43
--- NOTE | 2017-03-02 17:15 | ECHRPT ---
Indication: Syncope and collapse CONCLUSIONS The left ventricular systolic function is severely reduced with an estimated ejection fraction in th e range of 30-35%. Wall thickness is measured at the upper limits of normal. Normal left ventricular size. There is mild tricuspid valve regurgitation. The estimated pulmonary arterial pressure is 34.8 mmHg. Mild mitral valve regurgitation. BP: 137 / 89 HR: 86 Rhythm: Sinus MEASUREMENTS (Male / Female) Normal Values Technical Quality:Fair 2D ECHO LV Diastolic Diameter PLAX 5.5 cm 4.2 - 5.9 / 3.9 - 5.3 cm LV Systolic Diameter PLAX 4.8 cm IVS Diastolic Thickness 1.0 cm 0.6 - 1.0 / 0.6 - 0.9 cm LVPW Diastolic Thickness 1.0 cm 0.6 - 1.0 / 0.6 - 0.9 cm LV Relative Wall Thickness 0.4 LVOT Diameter 2.0 cm LA Systolic Diameter LX 4.1 cm 3.0 - 4.0 / 2.7 - 3.8 cm M-MODE Aortic Root Diameter MM 3.6 cm AV Cusp Separation MM 2.4 cm DOPPLER AV Peak Velocity 125.0 cm/s AV Peak Gradient 6.3 mmHg LVOT Peak Velocity 71.1 cm/s LVOT Peak Gradient 2.0 mmHg AV Area Cont Eq pk 1.8 cm MR Peak Velocity 413.0 cm/s MR Peak Gradient 68.2 mmHg Mitral E Point Velocity 94.3 cm/s Mitral A Point Velocity 53.3 cm/s Mitral E to A Ratio 1.8 LV E' Lateral Velocity 7.7 cm/s Mitral E to LV E' Lateral Ratio 12.2 LV E' Septal Velocity 6.3 cm/s Mitral E to LV E' Septal Ratio 14.9 TR Peak Velocity 249.0 cm/s TR Peak Gradient 24.8 mmHg Right Atrial Pressure 10.0 mmHg Pulmonary Artery Systolic Pressu 34.8 mmHg Right Ventricular Systolic Press 34.8 mmHg PV Peak Velocity 115.0 cm/s PV Peak Gradient 5.3 mmHg FINDINGS LEFT VENTRICLE The left ventricular systolic function is severely reduced with an estimated ejection fraction in th e range of 30-35%. Wall thickness is measured at the upper limits of normal. Normal left ventricular size. RIGHT VENTRICLE Normal right ventricular size and systolic function. LEFT ATRIUM The left atrial size is normal. RIGHT ATRIUM The right atrial size is normal. ATRIAL SEPTUM Normal atrial septal thickness without atrial level shunting by limited color doppler interrogation. AORTA The aortic root and proximal ascending aorta are normal in size on limited imaging. MITRAL VALVE Mild mitral valve regurgitation. AORTIC VALVE Trileaflet aortic valve. No aortic valve stenosis or regurgitation. TRICUSPID VALVE There is mild tricuspid valve regurgitation. The estimated pulmonary arterial pressure is 34.8 mmHg. PULMONARY VALVE No pulmonary valve regurgitation or stenosis. VESSELS The inferior vena cava is normal in size. PERICARDIUM No pericardial effusion. Magan Turner MD (Electronically Signed) Final Date:02 March 2017 17:15
[2017-03-02] MEDS ORDERED: PANTOPRAZOLE SODIUM 40 MG VIAL IV PUSH SCH (20:00)
[2017-03-02] MEDS: ACETAMINOPHEN/HYDROcodone 325 MG/5 MG TAB PO PRN (20:49)
[2017-03-02] MEDS ORDERED: TAMSULOSIN HCL 0.4 MG CAP PO SCH (21:00)
[2017-03-03] VITALS (8 sets, daily range): BP systolic 121–148; BP diastolic 77–88; PULSE 72–93; RESP 18–20; TEMP 97.6–98.3; O2SAT 95–98
[2017-03-03] MEDS: MORPHINE SULFATE 4 MG/ML INJ IV PUSH PRN (00:46)
[2017-03-03] MEDS: ACETAMINOPHEN/HYDROcodone 325 MG/5 MG TAB PO PRN ×2 (04:55→09:10)
[2017-03-03 07:49] LABS: AUTOMATED NEUTROPHIL # 4.3 TH/MM3 (1.8-7.7); BASOPHIL # 0.1 TH/MM3 (0-0.2); BASOPHIL % 0.9 % (0.0-2.0); EOSINOPHIL # 0.4 TH/MM3 (0-0.4); EOSINOPHIL % 5.3 % (0.0-4.0); HEMATOCRIT 43.3 % (39.0-51.0); LYMPH % 19.2 % (9.0-44.0); LYMPHOCYTE # 1.3 TH/MM3 (1.0-4.8); MEAN CELL VOLUME 92.2 FL (80.0-100.0); MEAN CORPUSCULAR HEMOGLOBIN 32.4 PG (27.0-34.0); MEAN CORPUSCULAR HGB CONC 35.1 % (32.0-36.0); MONO % 11.3 % (0.0-8.0); NEUT % 63.3 % (16.0-70.0); PLATELET COUNT 269 TH/MM3 (150-450); RED CELL DISTRIBUTION WIDTH 13.4 % (11.6-17.2); WHITE BLOOD COUNT 6.8 TH/MM3 (4.0-11.0)
[2017-03-03 08:03] LABS: HEMO FLAGS AUTO DIFF
[2017-03-03 08:09] LABS: BICARBONATE 27.5 MEQ/L (21.0-32.0); POTASSIUM 3.9 MEQ/L (3.5-5.1)
[2017-03-03] MEDS ORDERED: METOPROLOL TARTRATE 25 MG TAB PO SCH (09:00)
[2017-03-03] MEDS ORDERED: LISINOPRIL 5 MG TAB PO SCH (09:00)
[2017-03-03] MEDS: REMOVE OLD PATCH T-DERMAL SCH (09:00)
--- NOTE | 2017-03-03 09:04 | HHI.GIFU ---
Subjective Remarks Pt OOB and walking around in the hallways. In no apparent distress. Complaining of continued abdominal pain, but states it has been improving with his Protonix. Ate a full dinner last night. He is waiting for his breakfast to arrive this morning. Denies nausea, vomiting. Had a BM this morning, denies blood in the stool or black, tarry stool. (Anabel Saenz) Objective Vitals I&O Vital Signs Date Time Temp Pulse Resp B/P (MAP) Pulse Ox O2 Delivery O2 Flow Rate FiO2 03/03/17 07:30 97.7 87 18 136/83 (100) 98 03/03/17 05:23 84 03/03/17 04:51 98.1 83 18 148/79 (102) 95 03/03/17 00:15 97.6 87 18 121/77 (92) 95 03/03/17 00:00 72 03/02/17 20:30 97.5 87 19 127/79 (95) 95 03/02/17 20:00 84 03/02/17 17:09 20 03/02/17 16:13 97.9 71 18 123/78 (93) 96 03/02/17 16:10 86 03/02/17 13:18 97.6 93 18 138/88 (105) 97 I/O 03/02/17 03/02/17 03/02/17 03/03/17 03/03/17 03/03/17 07:00 15:00 23:00 07:00 15:00 23:00 Intake Total 640 ml 350 ml Balance 640 ml 350 ml Intake Oral 240 ml IV Total 400 ml Other 350 ml Laboratory Laboratory Tests Test 03/03/17 06:14 White Blood Count 6.8 Red Blood Count 4.70 Hemoglobin 15.2 Hematocrit 43.3 Mean Corpuscular Volume 92.2 Mean Corpuscular Hemoglobin 32.4 Mean Corpuscular Hemoglobin Concent 35.1 Red Cell Distribution Width 13.4 Platelet Count 269 Mean Platelet Volume 7.8 Neutrophils (%) (Auto) 63.3 Lymphocytes (%) (Auto) 19.2 Monocytes (%) (Auto) 11.3 Eosinophils (%) (Auto) 5.3 Basophils (%) (Auto) 0.9 Neutrophils # (Auto) 4.3 Lymphocytes # (Auto) 1.3 Monocytes # (Auto) 0.8 Eosinophils # (Auto) 0.4 Basophils # (Auto) 0.1 CBC Comment AUTO DIFF Blood Urea Nitrogen 13 Creatinine 0.94 Random Glucose 104 Calcium Level 8.3 Sodium Level 139 Potassium Level 3.9 Chloride Level 105 Carbon Dioxide Level 27.5 Anion Gap 7 Estimat Glomerular Filtration Rate 81 Imaging Last Impressions Carotid Artery Ultrasound 03/02/17 0000 Signed Impressions: Service Date/Time: February 08:13 - CONCLUSION: 1. Mild atherosclerotic plaquing. No hemodynamically significant carotid stenosis identified. Geoff Yu MD Head CT 03/01/171818 Signed Impressions: Service Date/Time: Wednesday, March 01, 2017 19:54 - CONCLUSION: Normal examination. Valentino Kahn MD Chest X-Ray 03/01/171818 Signed Impressions: Service Date/Time: Wednesday, March 01, 2017 18:31 - CONCLUSION: Normal examination. Valentino Kahn MD Abdomen/Pelvis CT 03/01/17 0000 Signed Impressions: Service Date/Time: Wednesday, March 01, 2017 19:58 - CONCLUSION: 1. Colonic diverticula without inflammatory change. 2. Suspected prostatic hypertrophy causing impress on the bladder floor. The bladder wall is diffusely thickened as may reflect lack of full distention and some degree of outlet obstruction could also contribute to this. 3. Degenerative and postoperative change in the lumbar spine. Valentino Kahn MD Physical Exam HEENT: Normocephalic; atraumatic; no jaundice. CHEST: CTA CARDIAC: RRR ABDOMEN: Soft, nondistended, mild diffuse tenderness; no hepatosplenomegaly; bowel sounds are present in all four quadrants. EXTREMITIES: No clubbing, cyanosis, or edema. SKIN: Normal; no rash; no jaundice. CONSOLE OPERATOR: No focal deficits; alert and oriented times three. (Anabel Saenz [facility]) Assessment and Plan Plan ASSESSMENT: - Hematemesis. Vomited small amount red blood x 2 prior to admission. Has not had any more episodes of vomiting since then. C/O intermittent lower abdominal pain past 6-12 months with rare episodes of hematemesis. He was scheduled for EGD 8 months ago, but did not follow through with it in [place]. (+) ETOH- 6-8 beers per week. Not on NSAIDs/Blood thinners. S/P EGD yesterday --> Gastritis. Pathology pending. HH stable 15.2/43.3. Will switch Protonix fro 40mg IV BID to 40mg PO BID and pt can be discharged on once daily dosing. - Abdominal pain. 6-12 month hx of lower abdominal sharp/burning pain. CT Scan abdomen and pelvis (03/01/17)---> Colonic diverticula without inflammatory change. Suspected prostatic hypertrophy causing impress on the bladder floor. The bladder wall is diffusely thickened as may reflex lack of full distention and some degree of outlet obstruction could also contribute to this. Degenerative and postoperative change in the lumbar spine. Labs unremarkable. PPI. EGD as above - Syncopal episode. Troponin I 0.02. - Abn. imaging of bladder per attending. Pt states improvement in urinary symptoms with the Flomax - BPH, CAD, HTN, Chronic back pain. PLAN: - Ok to discharge from a GI standpoint - Avoid NSAIDs - Protonix 40mg PO daily at home - Avoid alcohol - Follow up in office in 2 weeks - Pt seen and examined by Dr. Cramer and myself and this note is written on his behalf (Anabel Saenz) Physician Comments Patient seen and examined Agree with above Continue with current supportive care Monitor labs Okay for discharge Follow-up as outpatient (Dereje Cramer MD) Anabel Saenz Mar 03, 2017 09:04 Dereje Cramer MD Mar 03, 2017 17:37
[2017-03-03] MEDS: TAMSULOSIN HCL 0.4 MG CAP PO SCH (09:10)
[2017-03-03] MEDS: NICOTINE 14 MG/24 HR PATCH T-DERMAL SCH (09:11)
[2017-03-03] MEDS: NS + KCL 20 MEQ INJ 1,000 ML IV SCH (09:12)
[2017-03-03] MEDS ORDERED: PILL SPLITTER OTHER PRN (09:15)
[2017-03-03] MEDS: SODIUM CHLORIDE 0.9% FLUSH 10 ML FLUSH IV FLUSH SCH (09:17)
[2017-03-03 09:22] LABS: PLATELET ESTIMATE SMEAR NORMAL (NORMAL); PLATELET MORPHOLOGY NORMAL (NORMAL); SCAN/DIFF AUTO DIFF CONFIRMED
[2017-03-03 10:00] LABS: HDL CHOLESTEROL 44.8 MG/DL (40.0-60.0); LDL CHOLESTEROL 59 MG/DL (0-99)
--- NOTE | 2017-03-03 12:01 | PD.AMA ---
Against Medical Advice Note Discharge Disposition: Against Medical Advice Pt Condition on Discharge: Fair AMA Statement Patient Gianni Blunt has decided to leave the hospital against medical advice. This patient has the capacity to refuse care and understands the risks of leaving, including permanent disability and/or , and has had an opportunity to ask questions about his condition. The patient has been informed that he may return for care at any time, and follow up has been arranged/ advised. Elaine Kulkarni PA-C Mar 03, 2017 12:01 pm
--- NOTE | 2017-03-03 14:41 | MB ---
cc: ARUNA PAYNE M.D. DATE OF CONSULTATION: 03/03/2017 REASON FOR CONSULTATION: Cardiomyopathy noted on echo, history of syncope. HISTORY OF PRESENT ILLNESS The patient is a 61-year-old white male with a history of coronary disease status post coronary stenting possibly 20 years ago, history of hypertension who initially presented to the hospital with abdominal pain, urinary retention, near-syncope. The patient [place] when he had two brief episodes of near syncope lasting a few seconds. He states he never truly lost consciousness. At the time he was having a fair amount of lower abdominal pain he believes due to urinary retention. The patient has not been taking Flomax recently and has had problems urinating. He denies chest pain, shortness of breath, paroxysmal nocturnal dyspnea, palpitations, pedal edema, fevers. Since coming into hospital he states he feels "much better" and has had no further near-syncope or dizziness. Echocardiogram here in the hospital reportedly shows ejection fraction of 30-35%. PAST MEDICAL HISTORY 1. Hypertension 2. Hyperlipidemia. 3. Coronary disease status post coronary stenting possibly 20 years ago. PAST SURGICAL HISTORY Cholecystectomy. FAMILY HISTORY Noncontributory. SOCIAL HISTORY The patient smokes about a pack of cigarettes per day. He drinks occasional alcohol. REVIEW OF SYSTEMS Review of systems as in the history of present illness otherwise negative or noncontributory also denies melena, dyspepsia, wheezing, fevers. PHYSICAL EXAMINATION VITAL SIGNS: Blood pressure 139/87, pulse of 76, respirations 20. IN GENERAL: He is a well-developed, well-nourished white male in no acute distress. HEAD, EYES, EARS, NOSE, AND THROAT: Jugular venous pressure is normal. Carotid pulses are 2+ bilaterally and without bruits. CHEST: Examination of the chest reveals clear lung randolph on CARDIOVASCULAR SYSTEM: On cardiac examination he has a regular rhythm and rate without S3-S4 or murmur. ABDOMEN: On abdominal examination he has a soft, nontender abdomen. Bowel sounds are present. There is no definite hepatosplenomegaly. EXTREMITIES: Examination of extremities reveals no clubbing, cyanosis or edema. RADIOLOGIC: EKG shows sinus rhythm, minimal criteria for Left ventricular hypertrophy. LABORATORY FINDINGS: Laboratory data includes normal CBC, potassium 3.9, BUN 13, creatinine 0.94 use negative cardiac enzymes, total cholesterol 127, LDL 59, HDL 45, triglycerides 116. 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 The etiology of his cardiomyopathy is not entirely clear. Apparently global hypokinesis is noted on the echo. He has been noncompliant with medications chronically. There is no definite evidence for acute congestive heart failure. There is no definite evidence for acute coronary syndrome. At this point. He does not wish to stay in the hospital. I have emphasized to him the potential that he had ventricular arrhythmias causing his near-syncope, and the potential for sudden cardiac if indeed he did have ventricular tachycardia. RECOMMENDATIONS 1. I have asked the patient to follow up with me in the near future. 2. Agree with the beta-erin and KIANNA inhibitor therapy. 3. Continue daily aspirin if okay from a GI standpoint. MD NAVIN Garcia/shreyas /12:20 PM /2:22 PM MTDRakesh
[2017-03-03 18:13] LABS: HEMOGLOBIN A1a 1.1 %; HEMOGLOBIN A1b 0.7 %; HEMOGLOBIN Ao 85.4 %; HEMOGLOBIN F 1.1 %; HEMOGLOBIN LA1C 2.1 %; HEMOGLOBIN P3 3.6 %
[2017-03-03] MEDS ORDERED: PANTOPRAZOLE SOD 40 MG DELAYED RELEASE TAB PO SCH (21:00)
== END 2017-03-03 13:35 | disposition left against medical advice (07) | DRG 378 ==
LOC: NEPE 17:50 → NEDA 21:45 → NEPHCDU 23:29 → OBSVTOIN 03-03 11:05
PROVIDERS: ADMIT Hospitalist; ATTEND Hospitalist
PROC: 0DB68ZX Excision of Stomach, Via Natural or Artificial Opening Endoscopic, Diagnostic (ICD-10-PCS; principal; 2017-03-02 12:45)
DX: K29.71 Gastritis, unspecified, with bleeding (principal); I42.9 Cardiomyopathy, unspecified; I10 Essential (primary) hypertension; E86.0 Dehydration; E78.00 Pure hypercholesterolemia, unspecified; K21.9 Gastro-esophageal reflux disease without esophagitis; I25.10 Atherosclerotic heart disease of native coronary artery without angina pectoris; N40.1 Benign prostatic hyperplasia with lower urinary tract symptoms; R39.11 Hesitancy of micturition; R33.8 Other retention of urine; G89.29 Other chronic pain; M54.9 Dorsalgia, unspecified; E78.5 Hyperlipidemia, unspecified; F17.210 Nicotine dependence, cigarettes, uncomplicated; Z86.14 Personal history of Methicillin resistant Staphylococcus aureus infection; Z88.5 Allergy status to narcotic agent; Z91.14 Patient's other noncompliance with medication regimen; Z95.5 Presence of coronary angioplasty implant and graft
CPT/HCPCS: 70450; 71010; 74177; 80048; 80053; 80061; 80307; 81001; 82550; 82552; 83036; 83690; 83735; 84484; 85025; 85610; 85730; 88305; 93005; 93306; 93880; 96361; 96374; 96375; 96376; C9113; G0378; J2270; J2405; J3480; J7030; J7120; Q9967